=== PATIENT | female | born 1950 | race Caucasian/White ===

== ENCOUNTER → 2016-12-17 | Outpatient (CLI) | payer OTHER ==
[~2016-12-17] MED LIST: ATV/1 PO; B-COTAB18 PO; CHOL100010 PO; FLUT1INH INH; GADAVIST IV PRN; HRBLS PO
--- NOTE | 2016-12-17 11:09 | DIAGNOSTIC IMAGING REPORT ---
BRAIN COMBO CLINICAL HISTORY: D32.[address] brain COMPARISON STUDY: CT brain 10/20/2015 TECHNIQUE: Utilizing a 1.5 Ni magnet and dedicated coil, multiplanar, multiecho imaging of the brain was performed pre and postcontrast administration. IV administration of 7 mL of Gadavist contrast was uneventful. FINDINGS: Enhancing nodule considered extra-axial location left cerebellar hemisphere. This projects from the posterior aspect of the left mastoid margin. Maximum dimensions are 10 x 9.5 mm. No significant localized mass effect. Internal auditory canals are symmetric. This demonstrates uniform postcontrast enhancement. No additional enhancing foci are appreciated. The internal artery canals are symmetric. Sella and parasellar regions are unremarkable. IMPRESSION: 1 cm meningioma projecting from the posterior left mastoid. The study of the brain is otherwise negative The above report was generated using voice recognition software. It may contain grammatical, syntax or spelling errors. Electronically signed by: Teddy Desir M.D. 12/17/2016 11:07 AM Dictated Date/Time: 12/17/2016 11:03 AM
== END | disposition home or self-care (01) ==
LOC: C.MRIBC 09:32
PROVIDERS: ATTEND Psychiatry & Neurology Neurology
DX: D32.9 Benign neoplasm of meninges, unspecified (principal)

== ENCOUNTER → 2016-12-17 | Outpatient (CLI) | payer OTHER ==
[~2016-12-17] MED LIST changes: -GADAVIST IV PRN
[2016-12-17 10:09] LABS: BLOOD UREA NITROGEN 15 mg/dl (7-18); CREATININE 0.81 mg/dl (0.60-1.20); GLUCOSE 79 mg/dl (70-99)
[2016-12-17 10:10] LABS: ALKALINE PHOSPHATASE 54 U/L (45-117); ALT/SGPT 34 U/L (12-78); AST/SGOT 22 U/L (15-37); BUN/CREATININE RATIO 18.4 (10-20); CALCIUM 8.8 mg/dl (8.5-10.1); CARBON DIOXIDE 30 mmol/L (21-32); CHLORIDE 105 mmol/L (98-107); POTASSIUM 3.7 mmol/L (3.5-5.1); SODIUM 139 mmol/L (136-145)
== END | disposition home or self-care (01) ==
LOC: C.LAB 08:42
PROVIDERS: ATTEND Psychiatry & Neurology Neurology
DX: D32.9 Benign neoplasm of meninges, unspecified (principal)